=== PATIENT | female | born 1990 | race American Indian/Alaskan Native ===

== ENCOUNTER 2016-06-18 00:16 | Emergency (ER) | payer OTHER ==
[2016-06-18 00:24] VITALS: BMI 29.9
--- NOTE | 2016-06-18 00:50 | ED PDOC ---
Arrival/HPI <BaileePollo - Last Filed: 06/18/16 01:59> - General Historian: Patient - History of Present Illness Time/Duration: Other (1 days) Quality: Aching Context: Home <Maryjo Espitia - Last Filed: 06/19/16 16:38> - General Chief Complaint: Trauma Time Seen by Provider: 06/18/16 00:41 - History of Present Illness Narrative History of Present Illness (Text): 06/18/16 00:47 This 26 yo female presents to this ED c/o left shoulder pain, left anterior chest wall pain, and left anterior knee pain x 1 day. Patient stated she tripped and fell down on the floor. Denies head injury, LOC, diplopia, dysarthria, weakness, paresthesias, /GI incontinence, saddle anesthesia, urinary retention, hematuria, dizziness, or abnormal gait. (Maryjo Espitia) Past Medical History - Provider Review Nursing Documentation Reviewed: Yes - Infectious Disease Hx of Infectious Diseases: None - Genitourinary/Gynecological Hx Urinary Tract Infection: Yes - Psychiatric Hx Psychophysiologic Disorder: No Hx Substance Use: No - Anesthesia Hx Anesthesia Reactions: No <Maryjo Espitia - Last Filed: 06/19/16 16:38> Family/Social History - Physician Review Nursing Documentation Reviewed: Yes Family/Social History: No Known Family HX Smoking Status: Light Smoker < 10 Cigarettes Daily Hx Alcohol Use: Yes Frequency of alcohol use: Socially Hx Substance Use: No <Maryjo Espitia - Last Filed: 06/19/16 16:38> Allergies/Home Meds <BaileePollo - Last Filed: 06/18/16 01:59> <Maryjo Espitia - Last Filed: 06/19/16 16:38> Allergies/Adverse Reactions: Allergies No Known Allergies Allergy (Verified 08/26/15 16:44) Review of Systems - Review of Systems Constitutional: Normal. absent: Fatigue, Weight Change, Fevers, Night Sweats Eyes: Normal ENT: Normal Respiratory: Normal. absent: SOB, Cough Cardiovascular: absent: Palpitations, Edema, Calf Pain, SANDHU, Orthopnea, Syncope Gastrointestinal: Normal. absent: Abdominal Pain, Nausea, Vomiting Genitourinary Female: Normal. absent: Dysuria, Frequency, Hematuria Musculoskeletal: Other (Left anterior chest wall pain after falling.) Skin: Normal Neurological: Normal Endocrine: Normal Hemo/Lymphatic: Normal Psychiatric: Normal <Maryjo Espitia P - Last Filed: 06/19/16 16:38> Physical Exam Temperature: Afebrile Blood Pressure: Normal Pulse: Regular Respiratory Rate: Normal Appearance: Positive for: Well-Appearing, Non-Toxic, Comfortable Pain Distress: None Mental Status: Positive for: Alert and Oriented X 3 - Systems Exam Head: Present: Atraumatic, Normocephalic, Other (No raccoon sign. No bennett sign) Pupils: Present: PERRL, Other (no hyphema) Extroacular Muscles: Present: EOMI Conjunctiva: Present: Normal Ears: Present: Normal, NORMAL TM, Normal Canal, Other (No hemotympanum). No: Erythema, TM Bulging, Fluid, TM Perf Mouth: Present: Moist Mucous Membranes, Normal Lips, Normal Tounge Pharnyx: Present: Normal. No: ERYTHEMA, EXUDATE, TONSILS ENLARGED Nose (External): Present: Atraumatic Nose (Internal): Present: Normal Inspection. No: Septal Hematoma, Epistaxis Neck: Present: Normal Range of Motion, Trachea Midline. No: Meningeal Signs, MIDLINE TENDERNESS, Paraspinal Tenderness, Lymphadenopathy, Bruit Respiratory/Chest: Present: Clear to Auscultation, Good Air Exchange, Tender to Palpation (Mild tenderness left costalchondral area. Pain is 100 % reproducible ). No: Respiratory Distress, Accessory Muscle Use, Wheezes, Decreased Breath Sounds, Rales, Retracting, Rhonchi, Tachypneic Cardiovascular: Present: Regular Rate and Rhythm, Normal S1, S2. No: Murmurs Abdomen: Present: Normal Bowel Sounds. No: Tenderness, Distention, Peritoneal Signs Back: Present: Normal Inspection. No: CVA Tenderness, Midline Tenderness, Paraspinal Tenderness, Pain with Leg Raise Upper Extremity: Present: Normal Inspection, Normal ROM, Neurovascularly Intact , Capillary Refill < 2s. No: Cyanosis, Edema Lower Extremity: Present: Normal Inspection, NORMAL PULSES, Normal ROM, Neurovascularly Intact, Capillary Refill < 2 s. No: Edema, CALF TENDERNESS Neurological: Present: GCS=15, CN II-XII Intact, Speech Normal, Motor Func Grossly Intact, Normal Sensory Function, Normal Cerebellar Funct, Gait Normal, Memory Normal Skin: Present: Warm, Dry, Normal Color. No: Rashes Psychiatric: Present: Alert, Oriented x 3 <Maryjo Espitia - Last Filed: 06/19/16 16:38> Vital Signs Temp Pulse Resp BP Pulse Ox 06/18/16 02:30 69 17 110/76 98 06/18/16 00:50 98.2 F 66 18 114/69 97 Medical Decision Making <Pollo Morocho - Last Filed: 06/18/16 01:59> Re-evaluation Time: 02:13 Reassessment Condition: Re-examined, Improved <Maryjo Espitia P - Last Filed: 06/19/16 16:38> ED Course and Treatment: 06/18/16 02:13 Re-evaluation. Patient feels better. Discussed results and plan with patient who expresses understanding. All questions answered and there is agreement with the plan to discharge home with instructions. Patient stable for discharge. Return if symptoms persist or worsen. (Maryjo Espitia) - RAD Interpretation Narrative RAD Interpretations (Text): 06/18/16 02:13 Rib series x-rays: no fx or pneumo Shoulder x-rays: No fx or disloc Knee x-rays: No fx or dislocat (Maryjo Espitia) Radiology Orders: 06/18/16 00:45 SHOULDER LEFT [RAD] Stat 06/18/16 00:46 KNEE WITH PATELLA LEFT 3 VIEW [RAD] Stat RIBS LEFT & PA CHEST [RAD] Stat - Medication Orders Current Medication Orders: Discontinued Medications Ibuprofen (Motrin Tab) 400 mg PO STAT STA Stop: 06/18/16 00:52 Last Admin: 06/18/16 01:05 Dose: 400 mg - PA / LETTER OF CREDIT DOCUMENT EXAMINER / Resident Statement MD/DO has reviewed & agrees with the documentation as recorded. <Pollo Morocho - Last Filed: 06/18/16 01:59> Disposition/Present on Arrival <Pollo Morocho - Last Filed: 06/18/16 01:59> - Present on Arrival Any Indicators Present on Arrival: No History of DVT/PE: No History of Uncontrolled Diabetes: No Urinary Catheter: No History of Decub. Ulcer: No History Surgical Site Infection Following: None - Disposition Have Diagnosis and Disposition been Completed?: Yes Disposition Time: 02:15 Patient Plan: Discharge <Maryjo Espitia - Last Filed: 06/19/16 16:38> - Disposition Diagnosis: Chest wall pain, Knee pain, Shoulder pain, Fall Disposition: HOME/ ROUTINE Condition: GOOD Discharge Instructions (ExitCare): Chest Wall Pain (ED) Additional Instructions: Call private doctor for follow up visit in 1-2 days. Take medication as instructed. return to emergency if symptoms worsen. Remove johnnie bandage at bedtime Prescriptions: Famotidine [Pepcid] 40 mg PO DAILY #10 tablet Methocarbamol [Robaxin-750] 750 mg PO TID #21 tab Naproxen 500 mg PO BID #10 tab Referrals: Shara Roman MD [Family Provider] - Follow up with primary Forms: WORK NOTE
[2016-06-18 00:59] VITALS: TEMP 98.2
[2016-06-18 02:30] VITALS: BP 110/76; PULSE 69; RESP 17; O2SAT 98
--- NOTE | 2016-06-18 07:51 | RAD ---
PROCEDURE: Radiographs of the Left Shoulder HISTORY: pain COMPARISON: No prior. FINDINGS: BONES: Normal. No fracture. JOINTS: Normal. Glenohumeral and acromioclavicular joints preserved. No osteoarthritis. SOFT TISSUES: Normal. OTHER FINDINGS: None. IMPRESSION: No evidence of acute fracture or dislocation.
--- NOTE | 2016-06-18 07:52 | RAD ---
PROCEDURE: Left Knee Radiographs. HISTORY: Pain. COMPARISON: None. FINDINGS: BONES: Normal. No fracture. JOINTS: Normal. No osteoarthritis. JOINT EFFUSION: None. OTHER FINDINGS: None. IMPRESSION: No evidence of acute fracture or dislocation.
--- NOTE | 2016-06-18 07:59 | RAD ---
PROCEDURE: Radiographs of the Chest and Left Ribs. HISTORY: chest wall pain s/p fall COMPARISON: None available. TECHNIQUE: Frontal radiograph of the chest and multiple oblique radiographs of the left ribs were obtained. FINDINGS: LEFT RIBS: There is acute fracture at the anterior distal left 10th rib. LUNGS: Clear. PLEURA: No pneumothorax or pleural fluid. CARDIOVASCULAR: Normal sized heart. No pulmonary vascular congestion. OTHER FINDINGS: None. IMPRESSION: Suspicious for acute nondisplaced fracture at the anterior left 10th rib. No evidence of pleural effusion or pneumothorax.
== END 2016-06-18 02:35 | disposition home or self-care (01) ==
LOC: ED 00:16
DX: R07.89 Other chest pain (principal); M25.512 Pain in left shoulder; M25.562 Pain in left knee; W01.0XXA Fall on same level from slipping, tripping and stumbling without subsequent striking against object, initial encounter; Y92.410 Unspecified street and highway as the place of occurrence of the external cause

== ENCOUNTER 2016-10-06 11:49 | Emergency (ER) | payer OTHER ==
[2016-10-06 11:50] VITALS: BMI 29.9
[2016-10-06 11:58] VITALS: TEMP 98
[2016-10-06] MEDS ORDERED: Sodium Chloride 0.9% 1,000 ML IV STA (12:34)
--- NOTE | 2016-10-06 12:57 | ED PDOC ---
Arrival/HPI - General Chief Complaint: Abdominal Pain Time Seen by Provider: 10/06/16 12:01 Historian: Patient - History of Present Illness Narrative History of Present Illness (Text): 10/06/16 12:57 Patient complains of 3 day history of intermittent crampy epigastrica bdominal pain radiating to the left upper quadrant, associated with nausea and vomiting, worse with eating and at night, episodes last for 10 minutes and resolve spontaneous, reports taking no medications for her symptoms. Otherwise: (-) chest pain, (-) SOB, (-) diarrhea, (-) fever, (-) urinary symptoms, (-) melena, (-) hematochezia. Has no history of prior abdominal surgery. Past Medical History - Provider Review Nursing Documentation Reviewed: Yes - Infectious Disease Hx of Infectious Diseases: None - Genitourinary/Gynecological Hx Urinary Tract Infection: Yes - Psychiatric Hx Psychophysiologic Disorder: No Hx Substance Use: No - Anesthesia Hx Anesthesia Reactions: No Family/Social History - Physician Review Nursing Documentation Reviewed: Yes Family/Social History: No Known Family HX Smoking Status: Light Smoker < 10 Cigarettes Daily Hx Alcohol Use: Yes Hx Substance Use: No Allergies/Home Meds Allergies/Adverse Reactions: Allergies No Known Allergies Allergy (Verified 10/06/16 11:58) Review of Systems - Review of Systems Constitutional: Normal. absent: Fatigue, Weight Change, Fevers Respiratory: Normal. absent: SOB, Cough, Sputum Cardiovascular: Normal Gastrointestinal: Normal, Abdominal Pain, Nausea, Vomiting. absent: Stool Changes, Appetite Changes Musculoskeletal: Normal. absent: Arthralgias, Back Pain, Neck Pain Skin: Normal. absent: Rash, Pruritis, Skin Lesions Physical Exam - Physical Exam Narrative Physical Exam (Text): 10/06/16 13:00 GENERAL APPEARANCE: Patient is awake, alert, oriented x 3, in no acute distress. SKIN: Warm, dry; (-) cyanosis. EYES: (-) conjunctival pallor, (-) scleral icterus. ENMT: Mucous membranes moist. NECK: (-) tenderness, (-) stiffness, (-) lymphadenopathy. CHEST AND RESPIRATORY: (-) rales, (-) rhonchi, (-) wheezes; breath sounds equal bilaterally. HEART AND CARDIOVASCULAR: (-) irregularity; (-) murmur, (-) gallop. ABDOMEN AND GI: (-) distention. Bowel sounds active; (-) tenderness, (-) guarding, (-) rebound, (-) palpable masses, (-) CVA tenderness. EXTREMITIES: (-) deformity, (-) edema, (+) distal pulses. NEURO AND PSYCH: Mental status as above; (-) focal findings. Vital Signs Temp Pulse Resp BP Pulse Ox 10/06/16 14:22 98 F 85 20 116/73 99 10/06/16 14:09 98 F 82 20 98 10/06/16 11:54 98 F 67 16 108/72 98 Medical Decision Making ED Course and Treatment: 10/06/16 13:01 26 yo F complains of 3 day history of intermittent crampy epigastrica bdominal pain radiating to the left upper quadrant, associated with nausea and vomiting. Plan: -- Labs -- IV fluids -- Urinalysis -- Pepcid / Zofran -- Reassess and disposition -- US ABD 10/06/16 14:15 On reevaluation, patient reports improvement of her symptoms, denies abdominal pain or nausea. On exam, abdomen is soft with no tenderness, no guarding, no rebound. [place] [facility] [place] patient noted to be mildly anemic, rest of the labs are within normal limits. Ultrasound of abdomen shows no acute abnormalities. Diagnostic studies discussed with the patient. Patient notified likely diagnosis dyspepsia. Prescription provided. Based on history, exam and diagnostic results plan will be for outpatient follow-up. Patient advised to follow up with primary care physician in 1-2 days without fail. Advised to take medication as prescribed. Return to the emergency room at any time for any new or worsening symptoms. Patient states she fully agrees with and understands discharge instructions. States that she agrees with the plan and disposition. Verbalized and repeated discharge instructions and plan. I have given the patient opportunity to ask any additional questions. - Lab Interpretations Lab Results: 10/06/16 13:00 10/06/16 13:50 Lab Results 10/06/16 14:20: Urine Color Yellow, Urine Appearance Clear, Urine pH 6.0, Ur Specific [place] >= 1.030, Urine Protein Trace H, Urine Glucose (UA) Negative, Urine Ketones Negative, Urine Blood Small H, Urine Nitrate Negative, Urine Bilirubin Negative, Urine Urobilinogen 0.2, Ur Leukocyte Esterase Negative, Urine RBC Pending, Urine WBC Pending 10/06/16 13:50: Sodium 142, Potassium 4.5, Chloride 108 H, Carbon Dioxide 27, Anion Gap 12, BUN 13, Creatinine 0.7, Est GFR ( Amer) > 60, Est GFR (Non- Af Amer) > 60, Random Glucose 79, Calcium 8.8, Total Bilirubin 0.2, AST 17, ALT 28, Alkaline Phosphatase 59, Total Protein 6.3, Albumin 3.6, Globulin 2.7, Albumin/Globulin Ratio 1.3, Lipase 25 10/06/16 13:00: WBC 4.9, RBC 3.56, Hgb 10.9 L, Hct 33.8 L, MCV 94.9, MCH 30.6, MCHC 32.2, RDW 12.9, Plt Count 171, MPV 11.9 H, Gran % 53.6, Lymph % (Auto) 31.1 , Arroyo % (Auto) 10.2 H, Eos % (Auto) 4.9, Baso % (Auto) 0.2, Gran # 2.64, Lymph # 1.5, Arroyo # 0.5, Eos # 0.2, Baso # 0.01 - RAD Interpretation Narrative RAD Interpretations (Text): 10/06/16 13:50 US abdomen : FINDINGS: LIVER: Measures 14.4 cm. Liver demonstrates smooth contour though with slight increased echotexture suggesting fatty infiltration. Other infiltrative hepatocellular disease process not completely excluded. No obvious hepatic mass or collection. . No gross intrahepatic biliary ductal dilatation no ascites identified. GALLBLADDER: Unremarkable. No gallstones. No evidence of sonographic Gardiner sign COMMON BILE DUCT: Measures 2.5 mm. No stones. No dilatation. PANCREAS: Unremarkable as visualized. No mass. No ductal dilatation. RIGHT KIDNEY: Measures 12 x 4.5 x 5.1 cm. . Normal echogenicity. No calculus, mass, or hydronephrosis. LEFT KIDNEY: Measures 11.4 x 4.75 x 6.1 cm. Normal echogenicity. No calculus, mass, or hydronephrosis. SPLEEN: Normal in size and contour. No mass. AORTA: No aneurysmal dilatation. IVC: Unremarkable. OTHER FINDINGS: None. IMPRESSION: Findings suggest mild fatty infiltration. . Other infiltrative hepatocellular disease process not excluded. Radiology Orders: 10/06/16 12:34 ABDOMEN COMPLETE [US] Stat - Medication Orders Current Medication Orders: Discontinued Medications Sodium Chloride (Sodium Chloride 0.9%) 1,000 mls @ 1,000 mls/hr IV .Q1H STA Stop: 10/06/16 13:33 Last Admin: 10/06/16 14:12 Dose: 1,000 mls/hr Ondansetron HCl (Zofran Inj) 4 mg IVP STAT STA Stop: 10/06/16 12:35 Last Admin: 10/06/16 14:10 Dose: 4 mg Pantoprazole Sodium (Protonix Inj) 40 mg IVP STAT STA Stop: 10/06/16 12:35 Last Admin: 10/06/16 14:10 Dose: 40 mg - PA / ANIMAL SCIENCE PROFESSOR / Resident Statement / has reviewed & agrees with the documentation as recorded. Disposition/Present on Arrival - Present on Arrival Any Indicators Present on Arrival: No History of DVT/PE: No History of Uncontrolled Diabetes: No Urinary Catheter: No History of Decub. Ulcer: No History Surgical Site Infection Following: None - Disposition Have Diagnosis and Disposition been Completed?: Yes Diagnosis: Abdominal pain, Dyspepsia Disposition: HOME/ ROUTINE Disposition Time: 14:15 Patient Plan: Discharge Patient Problems: Current Active Problems Problem Status Onset Abdominal pain Acute Dyspepsia Acute Condition: IMPROVED Discharge Instructions (ExitCare): Chronic Indigestion (ED) Print Language: PORTUGUESE Additional Instructions: Thank you for letting us take care of you today. You were treated for abdominal pain, dyspepsia. The emergency medical care you received today was directed at your acute symptoms. If you were prescribed any medication, please fill it and take as directed. It may take several days for your symptoms to resolve. Return to the Emergency Department if your symptoms worsen, do not improve, or if you have any other problems. Please contact your doctor in 2 days for re-evaluation and follow up / or call one of the physicians/clinics you have been referred to that are listed on the Patient Visit Information form that is included in your discharge packet. Bring any paperwork you were given at discharge with you along with any medications you are taking to your follow up visit. Our treatment cannot replace ongoing medical care by a primary care provider (PCP) outside of the emergency department. Thank you for allowing the [facility] team to be part of your care today. Prescriptions: Esomeprazole Magnesium [Nexium] 40 mg PO DAILY #30 capsule. Referrals: [facility], [Primary Care Provider] - Follow up with primary Forms: [employer] (Polish)
[2016-10-06 13:08] LABS: BASO # 0.01 K/mm3 (0.0-2.0); BASO % 0.2 % (0.0-3.0); EOS # 0.2 (0.0-0.7); EOS % 4.9 % (1.5-5.0); GRAN # 2.64 (1.4-6.5); GRAN % 53.6 % (50.0-68.0); HEMATOCRIT 33.8 % (36.0-48.0); LYMPH # 1.5 (1.2-3.4); LYMPH % 31.1 % (22.0-35.0); MEAN CELL VOLUME 94.9 fl (80.0-105.0); MEAN CORPUSCULAR HEMOGLOBIN 30.6 pg (25.0-35.0); MEAN CORPUSCULAR HGB CONC 32.2 g/dl (31.0-37.0); MEAN PLATELET VOLUME 11.9 fl (7.0-11.0); MONO # 0.5 (0.1-0.6); MONO % 10.2 % (1.0-6.0); RED CELL DISTRIBUTION WIDTH 12.9 % (11.5-14.5); WHITE BLOOD COUNT 4.9 10^3/ul (4.5-11.0)
--- NOTE | 2016-10-06 13:43 | US ---
HISTORY: Epigastric pain COMPARISON: Comparison made with CT scan chest abdomen pelvis 05/28/2015 TECHNIQUE: Sonographic evaluation of the abdomen. FINDINGS: LIVER: Measures 14.4 cm. Liver demonstrates smooth contour though with slight increased echotexture suggesting fatty infiltration. Other infiltrative hepatocellular disease process not completely excluded. No obvious hepatic mass or collection. . No gross intrahepatic biliary ductal dilatation no ascites identified. GALLBLADDER: Unremarkable. No gallstones. No evidence of sonographic Gardiner sign COMMON BILE DUCT: Measures 2.5 mm. No stones. No dilatation. PANCREAS: Unremarkable as visualized. No mass. No ductal dilatation. RIGHT KIDNEY: Measures 12 x 4.5 x 5.1 cm. . Normal echogenicity. No calculus, mass, or hydronephrosis. LEFT KIDNEY: Measures 11.4 x 4.75 x 6.1 cm. Normal echogenicity. No calculus, mass, or hydronephrosis. SPLEEN: Normal in size and contour. No mass. AORTA: No aneurysmal dilatation. IVC: Unremarkable. OTHER FINDINGS: None. IMPRESSION: Findings suggest mild fatty infiltration. . Other infiltrative hepatocellular disease process not excluded.
[2016-10-06 14:33] LABS: URINE BILIRUBIN NEGATIVE (NEGATIVE); URINE BLOOD SMALL (NEGATIVE); URINE GLUCOSE (UA) NEGATIVE (NEGATIVE); URINE KETONE NEGATIVE (NEGATIVE); URINE LEUKOCYTE ESTERASE NEGATIVE Leu/uL (NEGATIVE); URINE PROTEIN TRACE mg/dL (<30 mg/dL); URINE UROBILINOGEN 0.2 E.U./dL (<1 E.U./dL)
[2016-10-06 14:34] LABS: URINE APPEARANCE CLEAR (CLEAR); URINE COLOR YELLOW (YELLOW)
[2016-10-06 14:35] LABS: ALB/GLOB RATIO 1.3 (1.1-1.8); ALKALINE PHOSPHATASE 59 U/L (38-133); ALT/SGPT 28 U/L (7-56); AST/SGOT 17 U/L (15-39); BILIRUBIN,TOTAL 0.2 mg/dL (0.2-1.3); BLOOD UREA NITROGEN 13 mg/dL (7-21); CALCIUM 8.8 mg/dL (8.4-10.5); CARBON DIOXIDE 27 mmol/L (21-33); CHLORIDE 108 mmol/L (98-107); GFR AFRICAN-AMERICAN > 60; GLUCOSE,RANDOM 79 mg/dL (70-110); LIPASE 25 U/L (23-300); POTASSIUM 4.5 mmol/L (3.6-5.0); SODIUM 142 mmol/L (132-148); TOTAL PROTEIN 6.3 g/dL (5.8-8.3)
[2016-10-06 14:54] LABS: URINE BACTERIA SMALL (NEG); URINE WBC 0 - 2 /hpf (0-6)
[2016-10-06 15:04] VITALS: BP 118/72; PULSE 75; RESP 19; O2SAT 100
== END 2016-10-06 15:04 | disposition home or self-care (01) ==
LOC: ED 11:49
DX: R10.13 Epigastric pain (principal)
CPT/HCPCS: 76700; 80053; 81001; 83690; 85025; 87086; 96361; 96374; 96375; 99284; C9113; J2405; J7040

== ENCOUNTER 2017-03-19 15:19 | Emergency (ER) | payer OTHER ==
[2017-03-19 15:57] VITALS: BMI 28.3
[2017-03-19 16:20] VITALS: RESP 18; TEMP 99
[2017-03-19 17:37] LABS: URINE BILIRUBIN NEGATIVE (NEGATIVE); URINE BLOOD SMALL (NEGATIVE); URINE GLUCOSE (UA) NEGATIVE (NEGATIVE); URINE LEUKOCYTE ESTERASE NEGATIVE Leu/uL (NEGATIVE); URINE NITRATE NEGATIVE (NEGATIVE); URINE PROTEIN NEGATIVE mg/dL (<30 mg/dL); URINE UROBILINOGEN 0.2 E.U./dL (<1 E.U./dL)
[2017-03-19 17:41] LABS: URINE APPEARANCE SL CLOUDY (CLEAR); URINE COLOR YELLOW (YELLOW)
[2017-03-19 17:46] LABS: URINE EPITHELIAL CELLS 0 - 2 /hpf (0-5); URINE RBC 0 - 2 /hpf (0-2); URINE WBC 0 - 2 /hpf (0-6)
[2017-03-19] MEDS ORDERED: cefTRIAXone (Rocephin) 250 mg Inj IM STA (17:53)
--- NOTE | 2017-03-19 18:13 | ED PDOC ---
Arrival/HPI - General Chief Complaint: Female Genitourinary Time Seen by Provider: 03/19/17 15:31 Historian: Patient - History of Present Illness Narrative History of Present Illness (Text): 03/19/17 18:09 26yr old female presents today with 1 week history of white vaginal discharge. pt states she didnt think anything of it until today when her boyfriend told her that he cheated on her. pt states she had had hx of gc with her last partner. denies fever/chills. denies urinary symptoms. pt states she just wants to make sure everything is okay. No other complaints. Time/Duration: 1 week Symptom Onset: Gradual Symptom Course: Unchanged Past Medical History - Provider Review Nursing Documentation Reviewed: Yes - Travel History Have you recently traveled outside [place] w/in the past 3 mons?: No - Infectious Disease Hx of Infectious Diseases: None - Tetanus Immunization Tetanus Immunization: Unknown - Cardiac Hx Cardiac Disorders: No - Pulmonary Hx Respiratory Disorders: No - Neurological Hx Neurological Disorder: No - HEENT Hx HEENT Disorder: No - Renal Hx Renal Disorder: No - Endocrine/Metabolic Hx Endocrine Disorders: No - Hematological/Oncological Hx Blood Disorders: No - Integumentary Hx Dermatological Disorder: No - Musculoskeletal/Rheumatological Hx Musculoskeletal Disorders: No - Gastrointestinal Hx Gastrointestinal Disorders: No - Genitourinary/Gynecological Hx Genitourinary Disorders: Yes Hx Urinary Tract Infection: Yes - Psychiatric Hx Psychophysiologic Disorder: No Hx Substance Use: No - Anesthesia Hx Anesthesia: No Hx Anesthesia Reactions: No Family/Social History - Physician Review Nursing Documentation Reviewed: Yes Family/Social History: Unknown Family HX Smoking Status: Light Smoker < 10 Cigarettes Daily Hx Alcohol Use: Yes Frequency of alcohol use: Socially Hx Substance Use: No Allergies/Home Meds Allergies/Adverse Reactions: Allergies No Known Allergies Allergy (Verified 03/19/17 16:24) Home Medications: Home Meds Medication Instructions Recorded Confirmed No Known Home Med 03/19/17 03/19/17 Review of Systems - Review of Systems Constitutional: absent: Fatigue, Fevers Respiratory: absent: SOB, Cough Cardiovascular: absent: Chest Pain, Palpitations Gastrointestinal: absent: Abdominal Pain, Nausea, Vomiting Genitourinary Female: Vaginal Discharge. absent: Dysuria, Frequency, Hematuria , Vaginal Bleeding Musculoskeletal: absent: Arthralgias Skin: absent: Rash, Pruritis Neurological: Headache. absent: Dizziness Psychiatric: absent: Anxiety, Depression Physical Exam Vital Signs Reviewed: Yes Vital Signs Temp Pulse Resp BP Pulse Ox 03/19/17 16:20 99.0 F 86 18 124/68 99 Temperature: Afebrile Blood Pressure: Normal Pulse: Regular Respiratory Rate: Normal Appearance: Positive for: Well-Appearing, Non-Toxic, Comfortable Pain Distress: None Mental Status: Positive for: Alert and Oriented X 3 - Systems Exam Head: Present: Atraumatic Mouth: Present: Moist Mucous Membranes Neck: Present: Normal Range of Motion Respiratory/Chest: Present: Clear to Auscultation, Good Air Exchange. No: Respiratory Distress, Accessory Muscle Use Cardiovascular: Present: Regular Rate and Rhythm, Normal S1, S2. No: Murmurs Abdomen: No: Tenderness, Rebound, Guarding Genitourinary/Pelvic Exam: Present: Normal External Genitalia, Vaginal Discharge (white thin vaginal discharge), Other (chaparoned by liz camilo rn). No: Vaginal Bleeding, Vaginal Lesions, Adenexal Tenderness, Adenexal Mass, Cervical Motion Tendernes, Cervical os Closed Back: Present: Normal Inspection Upper Extremity: Present: Normal ROM Lower Extremity: Present: Normal ROM Neurological: Present: GCS=15, Speech Normal Skin: Present: Warm, Dry, Normal Color. No: Rashes Psychiatric: Present: Alert, Oriented x 3 Medical Decision Making ED Course and Treatment: 03/19/17 18:12 Patient is nontoxic well-appearing in no distress with stable vital signs ua; wnl pt with white vaginal discharge. pt wants to be treated for std. Ceftriaxone 250 mg IM Zithromax 1 g p.o. given Gonorrhea and Chlamydia cultures are pending. Advised patient to refrain from sex for 10 days followup with the primary care physician within the next 2 days or return if symptoms worsen persist or if new symptoms develop. Patient verbalizes understanding of discharge instructions and need for immediate followup. all aspects of this case were discussed the attending of record. Impression: vaginal discharge Follow up primary care physician within the next 2 days Return if symptoms worsen persist or if new symptoms develop. - Lab Interpretations Lab Results: Lab Results 03/19/17 16:25: Urine Color Yellow, Urine Appearance Sl cloudy, Urine pH 6.0, Ur Specific [place] >= 1.030, Urine Protein Negative, Urine Glucose (UA) Negative, Urine Ketones Trace H, Urine Blood Small H, Urine Nitrate Negative, Urine Bilirubin Negative, Urine Urobilinogen 0.2, Ur Leukocyte Esterase Negative , Urine RBC 0 - 2, Urine WBC 0 - 2, Ur Epithelial Cells 0 - 2 - Medication Orders Current Medication Orders: Discontinued Medications Azithromycin (Zithromax) 1,000 mg PO STAT STA PRN Reason: Protocol Stop: 03/19/17 17:54 Last Admin: 03/19/17 18:02 Dose: 1,000 mg Ceftriaxone Sodium (Rocephin) 250 mg IM STAT STA PRN Reason: Protocol Stop: 03/19/17 17:54 Last Admin: 03/19/17 18:02 Dose: 250 mg IM Administration Charges Document 03/19/17 18:02 [facility] (Rec: 03/19/17 18:02 [facility] [id number]) Injection Site MAR Injection Site Right Gluteus Broderick Charges for Administration # of IM Administrations 1 Disposition/Present on Arrival - Present on Arrival Any Indicators Present on Arrival: No History of DVT/PE: No History of Uncontrolled Diabetes: No Urinary Catheter: No History of Decub. Ulcer: No History Surgical Site Infection Following: None - Disposition Have Diagnosis and Disposition been Completed?: Yes Diagnosis: Vaginal discharge Disposition: HOME/ ROUTINE Disposition Time: 18:00 Patient Plan: Discharge Patient Problems: Current Active Problems Problem Status Onset Vaginal discharge Acute Condition: GOOD Discharge Instructions (ExitCare): Vaginal Discharge (ED) Additional Instructions: Follow up primary care physician within the next 2 days Follow up with the [employer] [facility] within the next 2 days. Return if symptoms worsen persist or if new symptoms develop. Referrals: Domingo Burch, [Primary Care Provider] - Follow up with primary Bhupinder Burciaga MD [Staff Provider] - Follow up with primary Forms: [employer] (Slovak)
[2017-03-19 18:15] VITALS: BP 103/55; PULSE 58; O2SAT 97
== END 2017-03-19 18:27 | disposition home or self-care (01) ==
LOC: ED 15:19
DX: N89.8 Other specified noninflammatory disorders of vagina (principal); F17.210 Nicotine dependence, cigarettes, uncomplicated
CPT/HCPCS: 81001; 87491; 87591; 96372; 99284; J0696